=== PATIENT | female | born 1995 | race Caucasian/White ===

== ENCOUNTER 2021-10-03 18:06 | Inpatient (IN) ==
[2021-10-03] MEDS ORDERED: BUTORPHANOL 2 MG/ML VIAL IV PRN (18:17)
[2021-10-03] MEDS ORDERED: TRANEXAMIC ACID 1,000 MG in SODIUM CHLORIDE 0.9% 100 ML IV PRN (18:17)
[2021-10-03] MEDS ORDERED: MEPERIDINE 50 MG/1 ML VIAL IV PRN (18:17)
[2021-10-03] MEDS ORDERED: CARBOPROST TROMETHAMINE 250 MCG/ML AMP IM PRN (18:17)
[2021-10-03] MEDS ORDERED: OXYTOCIN/LR 20 UNIT/1,000 ML BAG IV ONE (18:17)
[2021-10-03] MEDS ORDERED: METHYLERGONOVINE 0.2 MG/1 ML AMP IM PRN (18:17)
[2021-10-03] MEDS ORDERED: miSOPROStoL 200 MCG TABLET RECTAL PRN (18:17)
[2021-10-03] MEDS ORDERED: GLUCAGON 1 MG VIAL IM PRN (18:21)
[2021-10-03] MEDS ORDERED: DEXTROSE 50% 25 GM/50 ML VIAL IV PRN (18:21)
[2021-10-03 18:57] LABS: Basophils # 0.1 10*3/uL (0.0-0.2); Basophils % 0.4 % (0.0-0.8); Eosinophils # 0.1 10*3/uL (0.0-0.87); Eosinophils % 0.7 % (0.00-10.9); Hematocrit 32.3 VOL% (35.7-47.0); Hemoglobin 10.3 GM/DL (12.0-16.0); Immature Granulocytes % 1.3 %; Immature Granulocytes Absolute 0.23 #; Lymphocytes # 2.9 10*3/uL (1.4-4.0); Lymphocytes % 15.8 % (21.3-54.2); Mean Corpuscular HGB Conc 31.9 GM/DL (32-36); Mean Corpuscular Volume 78.8 FL (87-102); Mean Platelet Volume 10.2 FL (9.6-12.0); Monocytes # 1.3 10*3/uL (0.11-0.8); Neutrophils % 74.8 % (38.7-73.9); Platelet Count 451 T/CUMM (130-400); White Blood Count 18.4 T/CUMM (4-12)
[2021-10-03 19:11] LABS: Alanine Aminotransferase 20 U/L (13-56); Albumin 2.9 G/DL (3.4-5.0); Alkaline Phosphatase 85 U/L (45-117); Aspartate Amino Transferase 10 U/L (0-37); Bilirubin,Direct < 0.050 MG/DL (0.0-0.20); Bilirubin,Total < 0.39 MG/DL (0.20-1.00); Blood Urea Nitrogen 11 MG/DL (7-18); Calcium 9.8 MG/DL (8.5-10.1); Carbon Dioxide 20 MMOL/L (21-32); Chloride 106 MMOL/L (98-107); Glucose 138 MG/DL (74-106); Osmolality,Calculated 270.1 MOS/KG (273-304); Potassium 3.7 MMOL/L (3.5-5.1); Sodium 135 MMOL/L (136-145); Total Protein 7.5 G/DL (6.4-8.2); Uric Acid 4.9 MG/DL (2.6-6.0)
[2021-10-03 19:58] LABS: Bilirubin,Urine Negative (Negative); Blood, Urine Negative (Negative); Glucose,Urine (UA) Negative (Negative); Ketones,Urine Negative (Negative); Nitrite,Urine Negative (Negative); Protein,Urine Negative (Negative); Urine Appearance Clear (Clear); Urine Color Yellow (Yellow); Urine Urobilinogen 0.2 eU/dL (<2.0); Urine pH 6.5 (4.5-8.0)
[2021-10-03 20:04] LABS: Mucus,Urine Occasional /LPF (Occasional); RBC,Urine 4 /HPF (0-4)
[2021-10-03 20:15] LABS: INR 0.9; PT Patient Result 10.2 SECS (10.1-12.1); Partial Thromboplastin Time 25.6 SECS (23.7-32.9)
[2021-10-03] MEDS: LACTATED RINGERS 1,000 ML IV SCH (21:00)
[2021-10-03 21:49] LABS: Protein/Creatinine Ratio,Urine 0.2 RATIO
[2021-10-03] MEDS: INSULIN REGULAR 100 UNIT/ML SUBCUT SCH (23:00)
[2021-10-04] MEDS: INSULIN REGULAR 100 UNIT/ML SUBCUT SCH ×6 (02:35→23:00)
[2021-10-04] MEDS ORDERED: OXYTOCIN/LR 20 UNIT/1,000 ML BAG IV SCH (08:00)
[2021-10-04] MEDS: ONDANSETRON 4 MG/2 ML VIAL IV PRN (08:05)
[2021-10-04] MEDS ORDERED: CITRIC ACID/SODIUM CITRATE 30 ML UDCUP PO ONE (08:41)
[2021-10-04] MEDS ORDERED: FAMOTIDINE 20 MG/2 ML VIAL IV ONE (08:41)
[2021-10-04] MEDS ORDERED: hydrOXYzine HCL 25 MG/1 ML VIAL IM PRN (08:41)
[2021-10-04] MEDS ORDERED: PROMETHAZINE 25 MG/1 ML VIAL IM ONE (08:41)
[2021-10-04] MEDS ORDERED: diphenhydrAMINE 50 MG/1 ML VIAL IV PRN ×2 (08:41)
[2021-10-04] MEDS ORDERED: NALOXONE 0.4 MG/ML VIAL IV PRN (08:41)
[2021-10-04] MEDS ORDERED: ePHEDrine 50 MG/ML VIAL IV PRN (08:41)
[2021-10-04] MEDS ORDERED: LACTATED RINGERS 1,000 ML IV ONE (08:41)
[2021-10-04] MEDS: LACTATED RINGERS 1,000 ML IV SCH (11:43)
[2021-10-04] MEDS: fentaNYL 2 MCG/ROPIV 0.2% EPID 100 ML EPIDURAL SCH ×2 (12:19→18:21)
[2021-10-04 16:14] LABS: Bilirubin,Urine Negative (Negative); Blood, Urine Negative (Negative); Glucose,Urine (UA) Negative (Negative); Ketones,Urine 15 mg/dL (Negative); Mucus,Urine Occasional /LPF (Occasional); Nitrite,Urine Negative (Negative); Protein,Urine Negative (Negative); RBC,Urine 2 /HPF (0-4); Squamous Epithelial Cell,Urine Occasional /HPF (0-10); Urine Appearance Clear (Clear); Urine Color Yellow (Yellow); Urine Specific Gravity 1.025 (1.001-1.035)
[2021-10-04 16:15] LABS: Urine Urobilinogen 0.2 eU/dL (<2.0)
[2021-10-04] MEDS ORDERED: ceFAZolin 3,000 MG in SYRINGE 1 EACH IV ONE (19:40)
[2021-10-04] MEDS ORDERED: TRANEXAMIC ACID 1,000 MG/10 ML VIAL ONE (19:43)
[2021-10-04] MEDS ORDERED: SODIUM CHLORIDE 0.9% 100 ML IV ONE (19:43)
[2021-10-04] MEDS ORDERED: OXYTOCIN/LR 20 UNIT/1,000 ML BAG IV ONE ×2 (19:43→21:26)
[2021-10-04] MEDS ORDERED: miSOPROStoL 200 MCG TABLET ONE (19:43)
[2021-10-04] MEDS ORDERED: CARBOPROST TROMETHAMINE 250 MCG/ML AMP IM ONE (19:44)
[2021-10-04] MEDS ORDERED: METHYLERGONOVINE 0.2 MG/1 ML AMP ONE (19:44)
[2021-10-04] MEDS ORDERED: PHENYLEPHRINE 1 MG/10 ML SYRINGE IV ONE (20:07)
[2021-10-04] MEDS ORDERED: BUPIVACAINE MPF 0.5% /EPI 30 ML VIAL ONE (20:07)
[2021-10-04] MEDS ORDERED: ONDANSETRON 4 MG/2 ML VIAL ONE (20:07)
[2021-10-04] MEDS ORDERED: MIDAZOLAM 2 MG/2 ML VIAL ONE (20:19)
[2021-10-04] MEDS ORDERED: METOCLOPRAMIDE 10 MG/2 ML VIAL ONE (20:38)
[2021-10-04] MEDS ORDERED: KETAMINE 500 MG/10 ML VIAL ONE (20:42)
[2021-10-04] MEDS ORDERED: OXYTOCIN 10 UNIT/ML VIAL ONE ×2 (20:47→20:51)
[2021-10-04] MEDS ORDERED: PROMETHAZINE 25 MG/1 ML VIAL ONE (20:56)
[2021-10-04] MEDS ORDERED: LABETALOL 20 MG/4 ML SYRINGE IV ONE (20:56)
[2021-10-04] MEDS ORDERED: CALCIUM CHLORIDE 1,000 MG/10 ML VIAL IV ONE (20:56)
[2021-10-04 21:08] LABS: Cord Arterial Blood HCO3 22.1 MMOL/L
[2021-10-04 21:10] LABS: Cord Venous Blood HCO3 24.4 MMOL/L; Cord Venous Blood PCO2 46.5 MMHG; Cord Venous Blood PO2 28.3
[2021-10-04] MEDS ORDERED: SIMETHICONE CHEW 80 MG TABLET PO PRN (21:26)
[2021-10-04] MEDS ORDERED: ONDANSETRON 4 MG/2 ML VIAL IV PRN (21:26)
[2021-10-04] MEDS ORDERED: ACETAMINOPHEN 325 MG TABLET PO PRN (21:26)
[2021-10-04] MEDS ORDERED: GLUCAGON 1 MG VIAL IM PRN (21:26)
[2021-10-04] MEDS ORDERED: hydrALAZINE 20 MG/1 ML VIAL ONE (21:28)
[2021-10-04] MEDS ORDERED: oxyCODONE/ACETAMINOPHEN 5-325 MG TABLET PO PRN (21:29)
[2021-10-04] MEDS ORDERED: LACTATED RINGERS 1,000 ML IV SCH (21:30)
[2021-10-04] MEDS ORDERED: buprenorphine HCL 0.3 MG/ML VIAL ONE (21:31)
[2021-10-04] MEDS ORDERED: DEXTROSE 10% 250 ML BAG IV PRN (21:38)
[2021-10-04] MEDS ORDERED: RHO(D) IMMUNE GLOBULIN 300 MCG SYRINGE IM ONE (22:00)
[2021-10-05] MEDS: ACETAMINOPHEN 500 MG TABLET PO SCH ×5 (00:25→17:46)
[2021-10-05] MEDS ORDERED: KETOROLAC 30 MG/1 ML VIAL IV SCH ×2 (00:30→03:00)
[2021-10-05] MEDS: KETOROLAC 30 MG/1 ML VIAL IV SCH ×3 (03:00→15:08)
[2021-10-05 03:14] LABS: Hemoglobin 7.4 GM/DL (12.0-16.0)
[2021-10-05] MEDS: INSULIN REGULAR 100 UNIT/ML SUBCUT SCH ×6 (03:48→22:17)
[2021-10-05] MEDS: oxyCODONE/ACETAMINOPHEN 5-325 MG TABLET PO PRN ×2 (04:52→18:10)
[2021-10-05] MEDS: FERROUS SULFATE 325 MG TABLET PO SCH ×2 (09:12→22:08)
[2021-10-05] MEDS: DOCUSATE SODIUM 100 MG CAPSULE PO SCH ×2 (09:12→22:07)
[2021-10-05] MEDS: MULTIVITAMIN (PRENATAL) TABLET PO SCH (09:12)
[2021-10-05] MEDS: MAGNESIUM HYDROXIDE SUSP 30 ML UDCUP PO PRN (09:12)
[2021-10-05 09:58] LABS: Basophils % 0.2 % (0.0-0.8); Eosinophils # 0.1 10*3/uL (0.0-0.87); Eosinophils % 0.4 % (0.00-10.9); Hematocrit 20.7 VOL% (35.7-47.0); Hemoglobin 6.6 GM/DL (12.0-16.0); Immature Granulocytes % 1.2 %; Immature Granulocytes Absolute 0.18 #; Lymphocytes # 2.2 10*3/uL (1.4-4.0); Lymphocytes % 14.7 % (21.3-54.2); Mean Corpuscular HGB Conc 31.9 GM/DL (32-36); Mean Corpuscular Volume 78.7 FL (87-102); Mean Platelet Volume 9.8 FL (9.6-12.0); Monocytes # 1.1 10*3/uL (0.11-0.8); Monocytes % 7.3 % (1.7-12.7); Neutrophils % 76.2 % (38.7-73.9); Platelet Count 253 T/CUMM (130-400); Red Blood Count 2.63 MC/CUMM (3.8-5.5); Red Cell Distribution Width 15.1 % (9.3-17.3); White Blood Count 14.8 T/CUMM (4-12)
[2021-10-05] MEDS ORDERED: SODIUM CHLORIDE 0.9% 1,000 ML IV PRN (10:27)
[2021-10-05 19:54] LABS: Basophils % 0.3 % (0.0-0.8); Eosinophils # 0.1 10*3/uL (0.0-0.87); Eosinophils % 0.7 % (0.00-10.9); Hematocrit 26.3 VOL% (35.7-47.0); Hemoglobin 8.6 GM/DL (12.0-16.0); Immature Granulocytes % 1.5 %; Immature Granulocytes Absolute 0.22 #; Lymphocytes # 2.2 10*3/uL (1.4-4.0); Lymphocytes % 15.1 % (21.3-54.2); Mean Corpuscular HGB Conc 32.7 GM/DL (32-36); Mean Corpuscular Volume 80.2 FL (87-102); Mean Platelet Volume 9.9 FL (9.6-12.0); Monocytes # 1.2 10*3/uL (0.11-0.8); Monocytes % 8.7 % (1.7-12.7); Neutrophils % 73.7 % (38.7-73.9); Platelet Count 245 T/CUMM (130-400); Red Blood Count 3.28 MC/CUMM (3.8-5.5); Red Cell Distribution Width 15.6 % (9.3-17.3); White Blood Count 14.3 T/CUMM (4-12)
[2021-10-05] MEDS: IBUPROFEN 800 MG TABLET PO PRN (22:05)
[2021-10-05] MEDS ORDERED: KETOROLAC 30 MG/1 ML VIAL IM PRN (22:38)
[2021-10-06] MEDS: INSULIN REGULAR 100 UNIT/ML SUBCUT SCH ×6 (02:20→22:30)
[2021-10-06] MEDS: IBUPROFEN 800 MG TABLET PO PRN (08:05)
[2021-10-06] MEDS: ONDANSETRON 4 MG/2 ML VIAL IV PRN (08:10)
[2021-10-06] MEDS: MAGNESIUM HYDROXIDE SUSP 30 ML UDCUP PO PRN (09:40)
[2021-10-06] MEDS: MULTIVITAMIN (PRENATAL) TABLET PO SCH (09:40)
[2021-10-06] MEDS: DOCUSATE SODIUM 100 MG CAPSULE PO SCH ×2 (09:40→20:41)
[2021-10-06] MEDS: FERROUS SULFATE 325 MG TABLET PO SCH ×2 (09:40→20:41)
[2021-10-06] MEDS ORDERED: HYDROCORTISONE 1% CREAM 28 GM TUBE TOP PRN (22:50)
[2021-10-07] MEDS: IBUPROFEN 800 MG TABLET PO PRN ×2 (01:34→10:35)
[2021-10-07] MEDS: INSULIN REGULAR 100 UNIT/ML SUBCUT SCH ×6 (02:20→22:03)
[2021-10-07] MEDS: MAGNESIUM HYDROXIDE SUSP 30 ML UDCUP PO PRN ×2 (05:51→10:35)
[2021-10-07 06:01] LABS: Hematocrit 23.4 VOL% (35.7-47.0); Hemoglobin 7.6 GM/DL (12.0-16.0)
[2021-10-07] MEDS ORDERED: SODIUM CHLORIDE 0.9% 1,000 ML IV PRN (09:35)
[2021-10-07] MEDS: MULTIVITAMIN (PRENATAL) TABLET PO SCH (10:34)
[2021-10-07] MEDS: DOCUSATE SODIUM 100 MG CAPSULE PO SCH ×2 (10:34→21:40)
[2021-10-07] MEDS: FERROUS SULFATE 325 MG TABLET PO SCH ×2 (10:34→21:40)
[2021-10-08] MEDS ORDERED: BISACODYL 10 MG SUPP RECTAL PRN (02:08)
[2021-10-08] MEDS: IBUPROFEN 800 MG TABLET PO PRN (02:21)
[2021-10-08] MEDS: INSULIN REGULAR 100 UNIT/ML SUBCUT SCH ×2 (02:45→06:24)
[2021-10-08 05:09] LABS: Basophils # 0.1 10*3/uL (0.0-0.2); Basophils % 0.8 % (0.0-0.8); Eosinophils # 0.4 10*3/uL (0.0-0.87); Eosinophils % 4.4 % (0.00-10.9); Hematocrit 28.1 VOL% (35.7-47.0); Hemoglobin 8.8 GM/DL (12.0-16.0); Immature Granulocytes % 2.4 %; Immature Granulocytes Absolute 0.21 #; Lymphocytes % 22.6 % (21.3-54.2); Mean Corpuscular HGB Conc 31.3 GM/DL (32-36); Mean Corpuscular Volume 84.4 FL (87-102); Mean Platelet Volume 9.6 FL (9.6-12.0); Monocytes # 0.8 10*3/uL (0.11-0.8); Neutrophils % 60.8 % (38.7-73.9); Platelet Count 305 T/CUMM (130-400); Red Blood Count 3.33 MC/CUMM (3.8-5.5); Red Cell Distribution Width 15.8 % (9.3-17.3); White Blood Count 8.9 T/CUMM (4-12)
[2021-10-08 08:38] VITALS: BP 129/61
[2021-10-08] MEDS: DOCUSATE SODIUM 100 MG CAPSULE PO SCH (09:09)
[2021-10-08] MEDS: FERROUS SULFATE 325 MG TABLET PO SCH (09:10)
[2021-10-08] MEDS: MULTIVITAMIN (PRENATAL) TABLET PO SCH (09:10)
== END 2021-10-08 13:40 | disposition home or self-care (01) | DRG 787 ==
LOC: N.LDOUT 18:06 → N.LD 18:07 → N.OB 10-05 00:18
PROVIDERS: ADMIT Obstetrics & Gynecology; ATTEND Obstetrics & Gynecology
PROC: LDCSECT (ICD-10-PCS; 2021-10-04 20:10)